=== PATIENT | male | born 1965 | race Caucasian/White ===

== ENCOUNTER 2016-09-06 11:57 | Emergency (ER) | payer OTHER, MEDICARE ==
[~2016-09-06] VITALS: Ht 177.8 cm; Wt 70.0 kg
[2016-09-06 11:59] VITALS: BP 168/81; PULSE 68; RESP 20; TEMP 97.7; O2SAT 99
[2016-09-06 12:35] VITALS: BP 140/82; PULSE 83; RESP 18; TEMP 98.1; O2SAT 100
--- NOTE | 2016-09-06 14:03 | PD ---
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 States that he hit the back of his head on the concrete and thinks that he blacked out for a few seconds. States that he was a little dizzy for a few minutes following the fall but denies any dizziness at this time. States that he also scraped his left elbow. Denies nausea, vomiting , headache, numbness or tingling, weakness, neck pain, back pain. Denies anticoagulation. No other complaints. PFSH Past Medical History Medical History: Denies Significant Hx Tetanus Vaccination: > 5 Years Influenza Vaccination: No Past Surgical History Surgical History: No Previous Surgery Social History Alcohol Use: No Tobacco Use: No Substance Use: No Allergies-Medications (Allergen,Severity, Reaction): Coded Allergies: No Known Allergies (Unverified , 09/06/16) Reported Meds & Prescriptions Reported Meds & Active Scripts Active Keflex (Cephalexin) 500 Mg Cap 500 Mg PO Q8H 7 Days Review of Systems Except as stated in HPI: all other systems reviewed are Neg Physical Exam Narrative GENERAL: Well-nourished and well-developed pleasant patient in no acute distress who is nontoxic appearing. SKIN: Warm and dry. Diffuse superficial abrasions to bilateral ankles. 1.5 cm laceration to left elbow. HEAD: Normocephalic and atraumatic. Small contusion to occipital scalp with mild tenderness to palpation. EYES: No injection, drainage, or hyphema noted. PERRLA. EOMI. ENT: No nasal drainage noted. Oropharynx is clear. NECK: Supple and the trachea is midline. No midline tenderness to palpation, full range of motion. CARDIOVASCULAR: Regular rate and rhythm. RESPIRATORY: Breath sounds are equal bilaterally with no accessory muscle use, wheezing, rhonchi, or crackles. GASTROINTESTINAL: Abdomen is soft, non-tender, and nondistended. MUSCULOSKELETAL: No obvious deformities, swelling, cyanosis, or ecchymosis is present throughout the upper and lower extremities. Patient has full range of motion without any signs of neurovascular compromise. Strength 5/5 upper and lower extremity equal bilaterally. NEUROLOGICAL: Awake, alert, and oriented. Normal speech and gait. Cranial nerves are grossly intact. Data Data Last Documented VS Vital Signs Date Time Temp Pulse Resp B/P Pulse Ox O2 Delivery O2 Flow Rate FiO2 09/06/16 12:45 80 18 100 Room Air 09/06/16 12:35 98.1 140/[address] Brain W/O Iv Contrast(Rout) (09/06/16 13:58) Elbow, Complete (4 Vws) (09/06/16 13:58) Tetanus/Diphtheria Tox Adult (Tetanus/Di (09/06/16 14:15) Lidocai-Epi 1%-1:100,000 Inj (Xylocaine- (09/06/16 14:15) MDM Medical Decision Making Medical Screen Exam Complete: Yes Emergency Medical Condition: Yes Differential Diagnosis Contusion versus laceration versus fracture versus concussion versus intracranial hemorrhage Narrative Course 51-year-old male presents to the emergency department for evaluation of fall with elbow and head injury. Patient is afebrile, vital signs are stable. Reporting possible loss of consciousness. No focal neurologic deficits. He has a small laceration to his left elbow. CT and x-ray imaging has been ordered and is pending. Tetanus vaccination is updated. Head CT is negative for any acute abnormalities. X-ray of the left elbow showing tiny foreign bodies over the insertion of triceps tendon. When I explored during laceration repair did not see any foreign bodies. Copious irrigation was performed. Patient will be placed on prophylactic antibiotics. Discussed proper wound care techniques and signs of infection. Advised follow-up with his PCP. Patient and family verbalizes understanding and agreement with treatment plan. Procedures Procedure Narrative LACERATION LOCATION: left elbow LENGTH: 1.5 cm laceration NUMBER OF STITCHES/YAHIR: 3 sutures REPAIR: The area of the laceration was prepped with Betadine and sterilely draped. The laceration was infiltrated with 1% lidocaine with epinephrine. The wound was copiously irrigated and explored without evidence of foreign body , tendon injury or neurovascular injury. The wound was closed using 4. 0 Ethilon. This was a single layer repair. Antibiotic ointment and a sterile dressing was applied. The patient was advised to keep the dressing clean and dry. Patient tolerated the procedure well. Diagnosis Primary Impression: Elbow laceration Qualified Code: S51.012A - Elbow laceration, left, initial encounter Additional Impressions: Scalp contusion Fall Qualified Code: W19.XXXA - Fall, initial encounter Referrals: Primary Care Physician Patient Instructions: General Instructions, Laceration (ED), Scalp Contusion in Adults (ED) Additional Instructions: Keep wound clean and dry. Wash gently with soap and water. Do not submerge wound in water such as a bath tub or swimming. Apply topical anabiotic ointment twice daily. Take antibiotics as prescribed. Have sutures removed in 7-10 days. Follow-up with your Primary Care Physician. Return to the ED for any acute worsening of symptoms. Med/Other Pt SpecificInfo: Prescription(s) given Scripts Cephalexin (Keflex)500 Mg Cie257 Mg PO Q8H 7 Days Ref 0 Prov:Chayo Bro DO 09/06/16 Disposition: 01 DISCHARGE HOME Condition: Stable Kailyn Hutson Sep 06, 2016 14:03
[2016-09-06] MEDS ORDERED: TETANUS/DIPHTHERIA TOXOID ADULT 0.5 ML VIAL IM ONE (14:15)
[2016-09-06] MEDS ORDERED: LIDOCAINE 1%/EPINEPHrine 1:100,000 SOLN 20 ML VIAL INFIL ONE (14:15)
--- NOTE | 2016-09-06 14:42 | RADRPT ---
EXAM DATE/TIME: 09/06/2016 14:19 [facility] COMPARISON: No previous studies available for comparison. INDICATIONS : Fall on left elbow today; pain. MEDICAL HISTORY : None. SURGICAL HISTORY : None. ENCOUNTER: Initial ACUITY: 1 day PAIN SCORE: 7/10 LOCATION: Left Elbow FINDINGS: There is no evidence of acute fracture. Bony mineralization is normal. There is tiny foreign bodies a t the insertion of the triceps tendon. There is no evidence of joint effusion. Joint spaces are maint ained. CONCLUSION: 1. There is no evidence of acute fracture. 2. Tiny foreign bodies as above Barrera Thrasher MD on September 06, 2016 at 14:40 Board Certified Radiologist. This report was verified electronically.
--- NOTE | 2016-09-06 14:43 | RADRPT ---
EXAM DATE/TIME: 09/06/2016 14:30 [facility] COMPARISON: No previous studies available for comparison. INDICATIONS : Fall, posterior head pain. RADIATION DOSE: 36.13 CTDIvol (mGy) MEDICAL HISTORY : None SURGICAL HISTORY : None. ENCOUNTER: Initial ACUITY: 1 day PAIN SCALE: 1/10 LOCATION: posterior head. TECHNIQUE: Multiple contiguous axial images were obtained of the head. Using automated exposure control and adj ustment of the mA and/or kV according to patient size, radiation dose was kept as low as reasonably a chievable to obtain optimal diagnostic quality images. FINDINGS: CEREBRUM: The ventricles are normal for age. No evidence of midline shift, mass lesion, hemorrhage or acute in farction. No extra-axial fluid collections are seen. POSTERIOR FOSSA: The cerebellum and brainstem are intact. The 4th ventricle is midline. The cerebellopontine angle i s unremarkable. EXTRACRANIAL: The visualized portion of the orbits is intact. SKULL: The calvaria is intact. No evidence of skull fracture. CONCLUSION: 1. No evidence of acute intracranial pathology. No masses are identified. 2. Fluid in the left maxillary sinus Barrera Thrasher MD on September 06, 2016 at 14:41 Board Certified Radiologist. This report was verified electronically.
[2016-09-06] MEDS ORDERED: CEPH-460 PO (15:55)
[2016-09-06 16:01] VITALS: BP 149/67; PULSE 79; RESP 20; O2SAT 99
== END 2016-09-06 16:16 | disposition home or self-care (01) ==
LOC: NEPB 11:57
DX: S51.012A Laceration without foreign body of left elbow, initial encounter (principal); S00.03XA Contusion of scalp, initial encounter; Z23 Encounter for immunization; W18.39XA Other fall on same level, initial encounter; Y99.0 Civilian activity done for income or pay
CPT/HCPCS: 12001; 70450; 73080; 90471; 90714